=== PATIENT | female | born 1950 | race Caucasian/White ===

== ENCOUNTER 2016-11-24 17:18 | Emergency (ER) | payer BC ==
[~2016-11-24] VITALS: Ht 162.6 cm; Wt 56.7 kg
[2016-11-24] MEDS ORDERED: PRILOSEC20 MG PO (17:35)
[2016-11-24] MEDS ORDERED: FISH OIL1 GM PO (17:35)
[2016-11-24] MEDS ORDERED: CALCIUM 600+D1 EAC3 PO (17:37)
[2016-11-24] MEDS ORDERED: TYLENOL500 MG PO (17:38)
[2016-11-24] MEDS ORDERED: SYNTHROID150 MCG PO (17:38)
[2016-11-24] MEDS ORDERED: HALFPRIN81 MG PO (17:39)
[2016-11-24] MEDS ORDERED: PREDNISONE10 MG PO (17:39)
[2016-11-24] MEDS ORDERED: IRON18 MG PO (17:40)
[2016-11-24] MEDS ORDERED: BYSTOLIC5 MG PO (17:41)
[2016-11-24] MEDS ORDERED: ACTIGALL300 MG PO (17:42)
[2016-11-24] MEDS ORDERED: IMURAN50 MG PO (17:42)
[2016-11-24] MEDS ORDERED: PLAQUENIL200 MG PO (17:42)
[2016-11-24] MEDS ORDERED: THERA M PLUS T1 EACH PO (17:43)
[2016-11-24] MEDS ORDERED: PRAVACHOL40 MG PO (17:43)
[2016-11-24] MEDS ORDERED: RYTHMOL150 MG PO (17:44)
== END 2016-11-24 19:04 | disposition short-term general hospital (02) ==
LOC: ER 17:18
DX: K92.1 Melena (principal); R10.13 Epigastric pain; L94.9 Localized connective tissue disorder, unspecified; D64.9 Anemia, unspecified

== ENCOUNTER → 2017-01-05 | Outpatient (CLI) | payer BC, MEDICARE ==
[~2017-01-05] MED LIST: ACTIGALL300 MG PO; BYSTOLIC5 MG PO; CALCIUM 600+D1 EAC3 PO; FISH OIL1 GM PO; HALFPRIN81 MG PO; IMURAN50 MG PO; IRON18 MG PO; PLAQUENIL200 MG PO; PRAVACHOL40 MG PO; PREDNISONE10 MG PO; PRILOSEC20 MG PO; RYTHMOL150 MG PO; SYNTHROID150 MCG PO; THERA M PLUS T1 EACH PO; TYLENOL500 MG PO
== END | disposition short-term general hospital (02) ==
LOC: CLCARD 09:14
DX: I48.0 Paroxysmal atrial fibrillation (principal); E78.5 Hyperlipidemia, unspecified; M19.90 Unspecified osteoarthritis, unspecified site; R53.83 Other fatigue; T50.995A Adverse effect of other drugs, medicaments and biological substances, initial encounter